=== PATIENT | male | born 1945 | race Caucasian/White ===

== ENCOUNTER 2016-08-11 11:54 | Emergency (ER) | payer OTHER, MEDICARE ==
[~2016-08-11] VITALS: Ht 182.9 cm; Wt 100.0 kg
[2016-08-11] MEDS ORDERED: COZAAR50 MG PO (12:10)
[2016-08-11] MEDS ORDERED: ATENOLOL25 MG PO (12:10)
[2016-08-11] MEDS ORDERED: ASPIRIN81 MG PO (12:10)
[2016-08-11] MEDS ORDERED: AMLODIPINE5 MG PO (12:11)
[2016-08-11 14:20] LABS: HEMATOCRIT 42.4 % (39.0-50.0); IMMATURE GRANULOCYTES 1.3 % (0.0-1.0); NEUT# 11.73 thou/uL (1.82-7.42); RED BLOOD COUNT 4.66 mill/uL (4.70-6.10); RED CELL DISTRI WIDTH 14.5 % (11.5-15.5)
[2016-08-11 14:32] LABS: ALBUMIN 4.2 g/dL (3.2-5.0); BILIRUBIN, TOTAL 0.6 mg/dL (0.0-1.4); CALCIUM 9.5 mg/dL (8.4-10.2); CREATININE 1.6 mg/dL (0.7-1.3); POTASSIUM 4.6 mmol/l (3.5-5.1); TOTAL PROTEIN 7.4 g/dL (6.3-8.2)
[2016-08-11] MEDS ORDERED: FLEXERIL PO (15:17)
[2016-08-11] MEDS ORDERED: LORTAB 10-325 M1 TAB PO (15:17)
[2016-08-11 16:34] VITALS: BP 133/66
== END 2016-08-11 16:55 | disposition home or self-care (01) | DRG 552 ==
LOC: ED 11:54
PROVIDERS: Emergency Medicine
PROC: 0HQ1XZZ Repair Face Skin, External Approach (ICD-10-PCS; principal; 2016-08-11)
DX: S16.1XXA Strain of muscle, fascia and tendon at neck level, initial encounter (principal); S09.90XA Unspecified injury of head, initial encounter; S01.81XA Laceration without foreign body of other part of head, initial encounter; M54.2 Cervicalgia; M54.5 Low back pain; V44.5XXA Car driver injured in collision with heavy transport vehicle or bus in traffic accident, initial encounter; W22.10XA Striking against or struck by unspecified automobile airbag, initial encounter; Y92.413 State road as the place of occurrence of the external cause